=== PATIENT | female | born 1970 | race Hispanic/Latino ===

== ENCOUNTER 2018-09-01 23:58 | Emergency (ER) | payer BC ==
[2018-09-02 00:04] VITALS: BP 141/83
[2018-09-02] MEDS ORDERED: MOTRIN PO ONE (00:23)
[2018-09-02] MEDS ORDERED: TORADOL IM ONE (00:36)
--- NOTE | 2018-09-02 00:41 | Emergency Department Report ---
ED Fall HPI - General Chief Complaint: Fall Stated Complaint: FALL Time Seen by Provider: 09/02/18 00:34 Source: patient Mode of arrival: Ambulatory - History of Present Illness Initial Comments: pt is a 47 y/o w/f who presents s/p fall x 2 steps tonight walking into home states neck and right shoulder pain , as primary complaint there was no loc pt was immediately amblatory on scene after fall, pain is 4/10 soreness aching pt has hx chronic shoulder pain , pain is relieved by rest pain is exacerbated by movement there is no weakness no numbness no tingling no deformity no laceration or bleeding. pt is ambulatory to baseline per patient. MD Complaint: fall Onset/Timin -: hour(s) Fall From: standing, down stairs (#) (2) Place Fall Occurred: home Loss of Consciousness: none Prolonged Down Time?: no Symptoms Prior to Fall: none Location - Extremities: Left: Knee, Right: Shoulder Severity: mild Severity scale (0 -10): 3 Quality: aching, other (soreness ) Context: tripped/slipped Associated Symptoms: denies - Related Data Previous Rx's Medication Instructions Recorded Last Taken Type Cyclobenzaprine [Flexeril] 10 mg PO BID PRN #20 tablet 09/02/18 Unknown Rx Menthol/Camphor [[place] 1 applicatio TP TID PRN #1 tube 09/02/18 Unknown Rx Ointment] Naproxen [Naprosyn TAB] 500 mg PO BID PRN #30 tablet 09/02/18 Unknown Rx Allergies Allergy/AdvReac Type Severity Reaction Status Date / Time latex Allergy Swelling Verified 09/02/18 00:14 ED Review of Systems ROS: Stated complaint: FALL Other details as noted in HPI Constitutional: denies: chills, fever Eyes: denies: eye pain, eye discharge, vision change ENT: denies: ear pain, throat pain Respiratory: denies: cough, shortness of breath, wheezing Cardiovascular: denies: chest pain, palpitations Endocrine: no symptoms reported Gastrointestinal: denies: abdominal pain, nausea, diarrhea Genitourinary: denies: urgency, dysuria, discharge Musculoskeletal: arthralgia, myalgia Skin: denies: rash, lesions Neurological: denies: headache, weakness, paresthesias Psychiatric: denies: anxiety, depression Hematological/Lymphatic: denies: easy bleeding, easy bruising ED Past Medical Hx - Past Medical History Previous Medical History?: Yes Hx Hypertension: Yes - Surgical History Past Surgical History?: Yes Additional Surgical History: hysterectomy, lap tubal, breast biopsy, hernia repair X 3, rectal tag, bladder tag - Social History Smoking Status: Former Smoker Substance Use Type: Alcohol - Medications Home Medications: Home Medications Medication Instructions Recorded Confirmed Last Taken Type Cyclobenzaprine [Flexeril] 10 mg PO BID PRN #20 tablet 09/02/18 Unknown Rx Menthol/Camphor [[place] 1 applicatio TP TID PRN #1 tube 09/02/18 Unknown Rx Ointment] Naproxen [Naprosyn TAB] 500 mg PO BID PRN #30 tablet 09/02/18 Unknown Rx ED Physical Exam - General Limitations: No Limitations General appearance: alert, in no apparent distress - Head Head exam: Present: atraumatic, normocephalic, normal inspection - Eye Eye exam: Present: normal appearance, PERRL, EOMI Pupils: Present: normal accommodation - ENT ENT exam: Present: normal exam, mucous membranes moist - Neck Neck exam: Present: tenderness (right lateral neck and shoulder tenderness to deep palpatino ), full ROM. Absent: meningismus, lymphadenopathy, thyromegaly - Expanded Neck Exam Expanded Neck exam: Present: tenderness. Absent: midline deformity, anterior neck swelling, thyroid mass, carotid bruit, tracheal deviation (no posterior vertebral point tenderness mild right post lateral paraspinus muscle tenderness to deep palpation rom intact including chin to chest bilat shoulders and full neck extension without restriction ) - Respiratory Respiratory exam: Present: normal lung sounds bilaterally. Absent: respiratory distress - Cardiovascular Cardiovascular Exam: Present: regular rate, normal rhythm. Absent: systolic murmur, diastolic murmur, rubs, gallop - GI/Abdominal GI/Abdominal exam: Present: soft, normal bowel sounds - Rectal Rectal exam: Present: deferred - Extremities Exam Extremities exam: Present: full ROM, tenderness - Expanded Upper Extremity Exam Right Shoulder Exam: Present: full ROM, tenderness, tenderness over AC joint. Absent : swelling, abrasion, laceration, ecchymosis, deformity, crepidus, dislocation, erythema Upper Arm exam: Present: normal inspection, full ROM Elbow exam: Present: normal inspection, full ROM Forearm Wrist exam: Present: normal inspection, full ROM Hand Wrist exam: Present: normal inspection, full ROM Vascular: Present: normal capillary refill. Absent: vascular compromise, Pallo Left Hand Wrist exam: Present: full ROM, ecchymosis. Absent: tenderness, swelling, abrasion, laceration, deformity, crepidus, dislocation, erythema, amputation, nail avulsion, subungual hematoma Neuro motor exam: Present: wrist extension intact, thumb opposition intact, thumb IP flexion intact, thumb adduction intact, fingers 2-5 abduction intact Neurosensory exam: Present: 2-point discrimination, radial nerve intact, ulnar nerve intact, median nerve intact Vascular: Present: normal capillary refill, radial pulse, brachial pulse, ulnar pulse. Absent: pulse deficit radial art, pulse deficit ulnar art, pulse deficit brachial art - Expanded Lower Extremity Exam Left Knee exam: Present: full ROM, ecchymosis, full knee extension. Absent: tenderness, swelling, abrasion, laceration, deformity, crepidus, dislocation, erythema, effusion, pain w/ pronation/supination, posterior draw sign Lower Leg exam: Present: full ROM, tenderness, ecchymosis. Absent: swelling, abrasion, laceration, deformity, crepidus, dislocation, erythema, palpable cord , Inés's sign Ankle exam: Present: normal inspection, full ROM Foot/Toe exam: Present: normal inspection, full ROM Neuro vascular tendon exam: Present: no vascular compromise. Absent: pulse deficit Gait: Positive: observed and normal - Back Exam Back exam: Present: normal inspection, full ROM, muscle spasm. Absent: tenderness, CVA tenderness (R), CVA tenderness (L), paraspinal tenderness, vertebral tenderness - Neurological Exam Neurological exam: Present: alert, oriented X3 - Psychiatric Psychiatric exam: Present: normal affect, normal mood - Skin Skin exam: Present: warm, dry, intact, normal color. Absent: rash ED Course Vital Signs 09/02/18 00:02 Temperature 97.4 F L Pulse Rate 71 Respiratory 18 Rate Blood Pressure 141/83 O2 Sat by Pulse 96 Oximetry ED Medical Decision Making - Radiology Data Radiology results: image reviewed no fracture no soft tissue abnormality - Medical Decision Making this is a fall with neck strain, shoulder strain, contusions, pain improved with medications given in ed, pt will follow up with pcp in 2-3 days plan naproxen, flexeril, tiger balm, moist heat and cryo therapy, pt verbalized agreement and understanding of discharge plan. Critical care attestation.: If time is entered above; I have spent that time in minutes in the direct care of this critically ill patient, excluding procedure time. ED Disposition Clinical Impression: Fall Qualifiers: Encounter type: initial encounter Qualified Code(s): W19.XXXA - Unspecified fall, initial encounter Neck muscle strain Qualifiers: Encounter type: initial encounter Qualified Code(s): S16.1XXA - Strain of muscle, fascia and tendon at neck level, initial encounter Right shoulder strain Qualifiers: Encounter type: initial encounter Qualified Code(s): S46.911A - Strain of unspecified muscle, fascia and tendon at shoulder and upper arm level, right arm , initial encounter Contusion Qualifiers: Encounter type: initial encounter Contusion area: knee Laterality: left Qualified Code(s): S80.02XA - Contusion of left knee, initial encounter Disposition: TO HOME OR SELFCARE Is pt being admited?: No Does the pt Need Aspirin: No Condition: Good Instructions: Fall Prevention (ED), Contusion in Adults (ED), Cervical Spine Strain (ED), Shoulder Sprain (ED) Prescriptions: Cyclobenzaprine [Flexeril] 10 mg PO BID PRN #20 tablet PRN Reason: Muscle Spasm Menthol/Camphor [[place] Ointment] 1 applicatio TP TID PRN #1 tube PRN Reason: pain Naproxen [Naprosyn TAB] 500 mg PO BID PRN #30 tablet PRN Reason: pain Referrals: PRIMARY CARE, [Primary Care Provider] - 3-5 Days Forms: Work/School Release Form(ED) Time of Disposition: 04:07
--- NOTE | 2018-09-04 10:31 | XRay Report ---
FINAL REPORT EXAM: CERVICAL SPINE X-RAY SERIES HISTORY: Neck pain status post fall injury. TECHNIQUE: 3 views COMPARISON: None available. FINDINGS: The atlantoaxial joint and odontoid process appear grossly intact. There is no acute fracture deformity, spondylolisthesis, retrolisthesis, or perched facet joint seen. The bony neural foramen are widely patent. The intervertebral disc heights are preserved. No prevertebral soft tissue swelling is seen. IMPRESSION: 1. UNREMARKABLE CERVICAL SPINE X-RAY SERIES. 2. CONSIDER FOLLOW-UP EVALUATION WITH SECTIONAL IMAGING IF SYMPTOMS PERSIST OR WORSEN.
--- NOTE | 2018-09-04 10:31 | XRay Report ---
FINAL REPORT EXAM: RIGHT SHOULDER X-RAY SERIES HISTORY: Shoulder pain status post fall injury. TECHNIQUE: 3 views COMPARISON: None available. FINDINGS: There is no acute bony fracture, or joint subluxation or dislocation seen. No evidence for inflammatory or degenerative arthritis is seen. The glenohumeral joint and acromioclavicular joint are intact. No focal bone erosion or sclerosis is seen. No soft tissue emphysema, radiodense soft tissue abnormality or foreign body is seen. No incidental apical lung infiltrate, contusion, or pneumothorax is seen. IMPRESSION: 1. NO ACUTE BONY FRACTURE, OR JOINT SUBLUXATION OR DISLOCATION SEEN. 2. NO RADIODENSE SOFT TISSUE ABNORMALITY OR FOREIGN BODY SEEN.
== END 2018-09-02 04:10 | disposition home or self-care (01) ==
LOC: ED 23:58
DX: S80.02XA Contusion of left knee, initial encounter (principal); S16.1XXA Strain of muscle, fascia and tendon at neck level, initial encounter; S46.911A Strain of unspecified muscle, fascia and tendon at shoulder and upper arm level, right arm, initial encounter; I10 Essential (primary) hypertension; Z90.710 Acquired absence of both cervix and uterus; Z87.891 Personal history of nicotine dependence; Z91.040 Latex allergy status; W10.9XXA Fall (on) (from) unspecified stairs and steps, initial encounter; Y93.89 Activity, other specified; Y92.099 Unspecified place in other non-institutional residence as the place of occurrence of the external cause; Y99.8 Other external cause status
CPT/HCPCS: 72040; 73030; 96372; 99283; J1885